=== PATIENT | female | born 1995 | race Caucasian/White ===

== ENCOUNTER 2019-04-06 12:50 | Emergency (ER) | payer OTHER ==
[2019-04-06 13:40] VITALS: BP 133/88
--- NOTE | 2019-04-06 14:03 | UC ---
Skin Complaint HPI - HPI Summary HPI Summary: 24 year old female no PMH no medications who presents with rash on b/l hands. ? mildly itchy. SHe noticed it after returning from [facility] about a week ago. Small, non-palpable red dots between thumb, first fingers b/l. no other location, no previous injuries/ rashes. + muliptle mosquito bites, but not different from those. no SS- no fever, chills, fatigeu. otherwise feeling normal. Concerned it may be bedbugs. - History of Current Complaint Chief Complaint: UCSkin Time Seen by Provider: 04/06/19 14:03 Stated Complaint: RASH ON HANDS Hx Obtained From: Patient Hx Last Menstrual Period: 03/23/19 Onset/Duration: Sudden Onset, Lasting Days Current Severity: None Pain Intensity: 0 Pain Scale Used: 0-10 Numeric - Allergy/Home Medications Allergies/Adverse Reactions: Allergies Allergy/AdvReac Type Severity Reaction Status Date / Time No Known Allergies Allergy Verified 04/06/19 13:36 Home Medications: Home Medications NK [No Home Medications Reported] 04/06/19 [History Confirmed 04/06/19] PMH/Surg Hx/FS Hx/Imm Hx Previously Healthy: Yes - Surgical History Surgical History: None - Family History Known Family History: Positive: Non-Contributory - Social History Occupation: Employed Full-time Alcohol Use: Occasionally Substance Use Type: None Smoking Status (MU): Current Some Day Smoker Type: Cigarettes Amount Used/How Often: occasionally Review of Systems All Other Systems Reviewed And Are Negative: Yes Constitutional: Positive: Negative Skin: Positive: Rash Eyes: Positive: Negative ENT: Positive: Negative Respiratory: Positive: Negative Cardiovascular: Positive: Negative Physical Exam - Summary Physical Exam Summary: rash only on b/l hands, no rash/ abnormalities seen on back, abdomen, areas, legs, chest Triage Information Reviewed: Yes Appearance: Well-Appearing, No Pain Distress, Well-Nourished Vital Signs: Initial Vital Signs Temp 98.2 F 04/06/19 13:36 Pulse 70 04/06/19 13:36 Resp 16 04/06/19 13:36 BP 133/88 04/06/19 13:36 Pulse Ox 100 04/06/19 13:36 Vital Signs Reviewed: Yes Eyes: Positive: Conjunctiva Clear, Other: - EMOI Musculoskeletal Exam: Normal Neurological Exam: Normal Psychological Exam: Normal Skin: Positive: Other - B/l Hands with non-blanching, non-palpable erythematous lesions <5mm in diameter in clusters around base of first, 2nd finger b/l, dorsally. no excoriations, no bleeding, no other discoloration, non-tender to touch. no signs of burrowing, open wounds/ sores, no weeping. Course/Dx - Course Course Of Treatment: vasculitis dermatitis, unknown cause, continue to montior. - Continue to montior- REturn if worsens or you notice spreading - Should fade within next 3-4 days patient seen and reviewed with Dr. Rodríguez - Diagnoses Provider Diagnosis: Dermatitis Discharge ED - Sign-Out/Discharge Documenting (check all that apply): Patient Departure All imaging exams completed and their final reports reviewed: No Studies - Discharge Plan Condition: Good Disposition: HOME Referrals: Care [facility] [Outside] No Primary Care Phys,NOPCP [Primary Care Provider] - Additional Instructions: - Continue to montior- REturn if worsens or you notice spreading - Should fade within next 3-4 days - Billing Disposition and Condition Condition: GOOD Disposition: Home
== END 2019-04-06 14:21 | disposition home or self-care (01) ==
LOC: UCCORT 12:50
DX: L30.8 Other specified dermatitis (principal); F17.210 Nicotine dependence, cigarettes, uncomplicated
CPT/HCPCS: 99201; G0463